=== PATIENT | male | born 1960 | race Caucasian/White ===

== ENCOUNTER → 2020-11-15 | Outpatient (CLI) | payer MEDICARE, MEDICAID ==
[~2020-11-15] MED LIST: IOHEXOL-300 100 ML BOTTLE ONE
== END | disposition home or self-care (01) ==
LOC: NM 07:33
PROVIDERS: ATTEND Urology
DX: C61 Malignant neoplasm of prostate (principal)
CPT/HCPCS: 71046; 72194; 78306; A9503; Q9967

== ENCOUNTER 2022-04-19 22:20 | Inpatient (IN) | payer MEDICARE, MEDICAID ==
[~2022-04-19] VITALS: Ht 188 cm; Wt 93.9 kg
[2022-04-19 22:20] VITALS: BP 140/60
[2022-04-20] MEDS ORDERED: ACETAMINOPHEN 325MG TABLET PO PRN ×2 (02:15)
[2022-04-20] MEDS ORDERED: ONDANSETRON HCL 4MG/2ML INJ IV PRN (02:15)
[2022-04-20] MEDS ORDERED: ZOLPIDEM TARTRATE 5MG TABLET PO PRN (02:15)
[2022-04-20] MEDS ORDERED: MAGNESIUM/ALUMINUM HYDROXIDE/SIMETHICONE 30ML UDC PO PRN (02:15)
[2022-04-20] MEDS ORDERED: DIPHENHYDRAMINE 50MG/ML VIAL IV PRN (02:15)
[2022-04-20 07:00] LABS: CHLORIDE 103 mEq/L (98-107)
[2022-04-20 07:03] LABS: HEMATOCRIT. 28.9 % (42.0-52.0); HEMOGLOBIN. 9.5 g/dL (14.0-18.0); MEAN CORPUSCULAR HEMOGLOBIN 30.2 pg (28.0-32.0); MEAN CORPUSCULAR VOLUME 91.8 fL (80.0-94.0); PLATELET 89 x1000/uL (130-400); RED BLOOD CELL COUNT 3.15 mill/uL (4.7-6.1); RED CELL DISTRIBUTION WIDTH 13.8 % (11.6-14.6)
[2022-04-20 08:00] VITALS: BP 120/86
[2022-04-20] MEDS: PANTOT AC/MIN OIL/PET HY-PHL OINT (AQUAPHOR) TOP SCH (09:00)
[2022-04-20] MEDS: PREDNISONE 10MG TABLET PO SCH (10:31)
[2022-04-20] MEDS: SODIUM CHLORIDE 1000MG TABLET PO SCH ×2 (10:31→17:00)
[2022-04-20] MEDS: FAMOTIDINE 20MG TABLET PO SCH (10:31)
[2022-04-20 20:00] VITALS: BP 140/86
[2022-04-21 08:00] VITALS: BP 116/83
[2022-04-21] MEDS: SODIUM CHLORIDE 1000MG TABLET PO SCH ×2 (09:02→16:51)
[2022-04-21] MEDS: FAMOTIDINE 20MG TABLET PO SCH (09:02)
[2022-04-21] MEDS: PREDNISONE 10MG TABLET PO SCH (09:02)
[2022-04-21] MEDS: PANTOT AC/MIN OIL/PET HY-PHL OINT (AQUAPHOR) TOP SCH (16:51)
[2022-04-21 20:00] VITALS: BP 149/96
[2022-04-21 20:52] LABS: PLATELET ESTIMATE DECREASED
[2022-04-21] MEDS ORDERED: ACETAMINOPHEN 325MG TABLET PO PRN (23:30)
[2022-04-21] MEDS ORDERED: DEXTROSE 50% WATER 50ML SYRINGE IV PRN (23:30)
[2022-04-22] VITALS (9 sets, daily range): BP systolic 101–136; BP diastolic 66–96
[2022-04-22] MEDS ORDERED: BLOOD SUGAR DIAGNOSTIC STRIP TEST SCH (06:30)
[2022-04-22 06:35] LABS: INR 1.1; PROTHROMBIN TIME 11.5 sec (9.6-11.0)
[2022-04-22] MEDS ORDERED: BICT1TAB3 (07:10)
[2022-04-22] MEDS ORDERED: CEFAZOLIN 1000MG PREMIX 50 ML IV NR (08:00)
[2022-04-22] MEDS ORDERED: INSULIN LISPRO 100 UNITS/ML SUBCUT SCH (09:00)
[2022-04-22] MEDS ORDERED: LIDOCAINE HCL 1% 10 MG/ML 10ML VIAL ONE (09:44)
[2022-04-22] MEDS: FAMOTIDINE 20MG TABLET PO SCH ×2 (10:00→21:21)
[2022-04-22] MEDS: PREDNISONE 10MG TABLET PO SCH (10:01)
[2022-04-22] MEDS: SODIUM CHLORIDE 1000MG TABLET PO SCH ×2 (10:01→17:45)
[2022-04-22] MEDS: PANTOT AC/MIN OIL/PET HY-PHL OINT (AQUAPHOR) TOP SCH (10:05)
[2022-04-23 08:00] VITALS: BP 98/72
[2022-04-23] MEDS: PANTOT AC/MIN OIL/PET HY-PHL OINT (AQUAPHOR) TOP SCH (09:00)
[2022-04-23] MEDS: PREDNISONE 10MG TABLET PO SCH (09:17)
[2022-04-23] MEDS: FAMOTIDINE 20MG TABLET PO SCH ×2 (09:17→21:00)
[2022-04-23] MEDS: SODIUM CHLORIDE 1000MG TABLET PO SCH ×2 (09:17→17:37)
[2022-04-23 20:00] VITALS: BP 146/95
[2022-04-24 08:00] VITALS: BP 91/55
[2022-04-24] MEDS: FAMOTIDINE 20MG TABLET PO SCH ×2 (09:17→20:39)
[2022-04-24] MEDS: PANTOT AC/MIN OIL/PET HY-PHL OINT (AQUAPHOR) TOP SCH (09:17)
[2022-04-24] MEDS: PREDNISONE 10MG TABLET PO SCH (09:17)
[2022-04-24] MEDS: SODIUM CHLORIDE 1000MG TABLET PO SCH ×2 (09:17→16:31)
[2022-04-24] MEDS ORDERED: VENL37.588 PO (15:28)
[2022-04-24] MEDS ORDERED: ASPI-1497 PO (15:28)
[2022-04-24] MEDS ORDERED: PRED5TAB PO (15:28)
[2022-04-24] MEDS ORDERED: BICT1TAB PO (15:28)
[2022-04-24] MEDS ORDERED: DOXA1TAB2 PO (15:28)
[2022-04-24] MEDS ORDERED: DAPS100T PO (15:28)
[2022-04-24] MEDS ORDERED: ATOR10TA69 PO (15:28)
[2022-04-24 20:00] VITALS: BP 131/54
[2022-04-25 08:00] VITALS: BP 176/98
[2022-04-25] MEDS: SODIUM CHLORIDE 1000MG TABLET PO SCH ×2 (08:37→16:47)
[2022-04-25] MEDS: PREDNISONE 10MG TABLET PO SCH (08:37)
[2022-04-25] MEDS: FAMOTIDINE 20MG TABLET PO SCH ×2 (08:37→21:15)
[2022-04-25] MEDS: PANTOT AC/MIN OIL/PET HY-PHL OINT (AQUAPHOR) TOP SCH (08:41)
[2022-04-25 09:00] VITALS: BP 119/81
[2022-04-25] MEDS: ASPIRIN 81MG TABLET PO SCH (14:25)
[2022-04-25] MEDS: VENLAFAXINE HCL 37.5MG TABLET PO SCH (14:26)
[2022-04-25] MEDS: DAPSONE 100MG TABLET PO SCH (14:26)
[2022-04-25] MEDS: DOXAZOSIN MESYLATE 2MG TABLET PO SCH (14:27)
[2022-04-25] MEDS ORDERED: SUCCINYLCHOLINE CHLORIDE 200MG/10ML IV ONE (14:46)
[2022-04-25 19:43] VITALS: BP 104/77
[2022-04-25] MEDS: ATORVASTATIN CALCIUM 10MG TABLET PO SCH (21:15)
[2022-04-25] MEDS: BENZTROPINE MESYLATE 1MG TABLET PO SCH (21:15)
[2022-04-26 08:00] VITALS: BP 108/71
[2022-04-26] MEDS: ASPIRIN 81MG TABLET PO SCH (09:40)
[2022-04-26] MEDS: DAPSONE 100MG TABLET PO SCH (09:41)
[2022-04-26] MEDS: DOXAZOSIN MESYLATE 2MG TABLET PO SCH (09:41)
[2022-04-26] MEDS: VENLAFAXINE HCL 37.5MG TABLET PO SCH (09:41)
[2022-04-26] MEDS: FAMOTIDINE 20MG TABLET PO SCH ×2 (09:41→20:32)
[2022-04-26] MEDS: PREDNISONE 5MG TABLET PO SCH (09:41)
[2022-04-26] MEDS: BENZTROPINE MESYLATE 1MG TABLET PO SCH ×2 (09:41→20:32)
[2022-04-26] MEDS: SODIUM CHLORIDE 1000MG TABLET PO SCH ×2 (09:41→16:56)
[2022-04-26] MEDS: PANTOT AC/MIN OIL/PET HY-PHL OINT (AQUAPHOR) TOP SCH (09:42)
[2022-04-26 20:00] VITALS: BP 113/81
[2022-04-26] MEDS: ATORVASTATIN CALCIUM 10MG TABLET PO SCH (20:32)
[2022-04-27 07:52] VITALS: BP 136/90
[2022-04-27] MEDS: PANTOT AC/MIN OIL/PET HY-PHL OINT (AQUAPHOR) TOP SCH (09:13)
[2022-04-27] MEDS: VENLAFAXINE HCL 37.5MG TABLET PO SCH (09:13)
[2022-04-27] MEDS: DOXAZOSIN MESYLATE 2MG TABLET PO SCH (09:13)
[2022-04-27] MEDS: PREDNISONE 5MG TABLET PO SCH (09:13)
[2022-04-27] MEDS: BENZTROPINE MESYLATE 1MG TABLET PO SCH ×2 (09:13→20:28)
[2022-04-27] MEDS: DAPSONE 100MG TABLET PO SCH (09:13)
[2022-04-27] MEDS: FAMOTIDINE 20MG TABLET PO SCH ×2 (09:13→20:28)
[2022-04-27] MEDS: ASPIRIN 81MG TABLET PO SCH (09:13)
[2022-04-27] MEDS: SODIUM CHLORIDE 1000MG TABLET PO SCH ×2 (09:14→17:36)
[2022-04-27 20:00] VITALS: BP 141/83
[2022-04-27] MEDS: ATORVASTATIN CALCIUM 10MG TABLET PO SCH (20:28)
[2022-04-28 06:10] LABS: CHLORIDE 103 mEq/L (98-107)
[2022-04-28 06:28] LABS: HEMATOCRIT. 27.9 % (42.0-52.0); HEMOGLOBIN. 9.3 g/dL (14.0-18.0); MEAN CORPUSCULAR HEMOGLOBIN 30.2 pg (28.0-32.0); MEAN CORPUSCULAR VOLUME 90.3 fL (80.0-94.0); MEAN PLATELET VOLUME 9.6 fl (7.4-10.4); PLATELET 184 x1000/uL (130-400); RED BLOOD CELL COUNT 3.09 mill/uL (4.7-6.1); RED CELL DISTRIBUTION WIDTH 14.6 % (11.6-14.6)
[2022-04-28 08:00] VITALS: BP 92/56
[2022-04-28] MEDS: DOXAZOSIN MESYLATE 2MG TABLET PO SCH (09:00)
[2022-04-28] MEDS: ASPIRIN 81MG TABLET PO SCH (09:40)
[2022-04-28] MEDS: VENLAFAXINE HCL 37.5MG TABLET PO SCH (09:41)
[2022-04-28] MEDS: PREDNISONE 5MG TABLET PO SCH (09:41)
[2022-04-28] MEDS: SODIUM CHLORIDE 1000MG TABLET PO SCH ×2 (09:41→16:30)
[2022-04-28] MEDS: DAPSONE 100MG TABLET PO SCH (09:41)
[2022-04-28] MEDS: BENZTROPINE MESYLATE 1MG TABLET PO SCH ×2 (09:41→20:25)
[2022-04-28] MEDS: FAMOTIDINE 20MG TABLET PO SCH ×2 (09:41→20:25)
[2022-04-28] MEDS: PANTOT AC/MIN OIL/PET HY-PHL OINT (AQUAPHOR) TOP SCH (09:46)
[2022-04-28] MEDS: MIDODRINE HCL 5MG TABLET PO SCH (16:32)
[2022-04-28 20:08] VITALS: BP 143/62
[2022-04-28] MEDS: ATORVASTATIN CALCIUM 10MG TABLET PO SCH (20:25)
[2022-04-28 21:51] LABS: PLATELET ESTIMATE NORMAL
[2022-04-29] MEDS: MIDODRINE HCL 5MG TABLET PO SCH ×2 (08:42→16:01)
[2022-04-29] MEDS: DAPSONE 100MG TABLET PO SCH (09:27)
[2022-04-29] MEDS: FAMOTIDINE 20MG TABLET PO SCH ×2 (09:27→21:49)
[2022-04-29] MEDS: BENZTROPINE MESYLATE 1MG TABLET PO SCH ×2 (09:27→21:49)
[2022-04-29] MEDS: PREDNISONE 5MG TABLET PO SCH (09:27)
[2022-04-29] MEDS: SODIUM CHLORIDE 1000MG TABLET PO SCH ×2 (09:27→16:01)
[2022-04-29] MEDS: VENLAFAXINE HCL 37.5MG TABLET PO SCH (09:27)
[2022-04-29] MEDS: ASPIRIN 81MG TABLET PO SCH (09:27)
[2022-04-29] MEDS: PANTOT AC/MIN OIL/PET HY-PHL OINT (AQUAPHOR) TOP SCH (09:27)
[2022-04-29] MEDS ORDERED: VENL37.586 PO (09:57)
[2022-04-29] MEDS ORDERED: DOXA1TAB2 PO (09:58)
[2022-04-29] MEDS ORDERED: BICT1TAB PO (09:59)
[2022-04-29] MEDS ORDERED: PRED5TAB48 PO (10:00)
[2022-04-29] MEDS ORDERED: DAPS100T PO (10:01)
[2022-04-29] MEDS ORDERED: ASPI-1497 PO (10:02)
[2022-04-29] MEDS ORDERED: CARI3CAP PO (10:12)
[2022-04-29] MEDS ORDERED: ATOR10TA PO (10:13)
[2022-04-29] MEDS ORDERED: ABIR250T2 PO (10:15)
[2022-04-29] MEDS ORDERED: BICA50TA7 PO (10:16)
[2022-04-29] MEDS ORDERED: TAMS-11 PO (10:18)
[2022-04-29] MEDS: SODIUM CHLORIDE 0.9% 1,000 ML IV SCH (16:00)
[2022-04-29 19:46] VITALS: BP 102/71
[2022-04-29] MEDS: ATORVASTATIN CALCIUM 10MG TABLET PO SCH (21:49)
[2022-04-30 08:00] VITALS: BP 100/55
[2022-04-30] MEDS: SODIUM CHLORIDE 1000MG TABLET PO SCH ×2 (09:11→18:03)
[2022-04-30] MEDS: VENLAFAXINE HCL 37.5MG SR CAPSULE 24HR PO SCH (09:11)
[2022-04-30] MEDS: PREDNISONE 5MG TABLET PO SCH (09:11)
[2022-04-30] MEDS: FAMOTIDINE 20MG TABLET PO SCH ×2 (09:11→21:35)
[2022-04-30] MEDS: ASPIRIN 81MG TABLET PO SCH (09:11)
[2022-04-30] MEDS: MIDODRINE HCL 5MG TABLET PO SCH ×3 (09:11→18:03)
[2022-04-30] MEDS: BENZTROPINE MESYLATE 1MG TABLET PO SCH ×2 (09:11→21:35)
[2022-04-30] MEDS: PANTOT AC/MIN OIL/PET HY-PHL OINT (AQUAPHOR) TOP SCH (09:12)
[2022-04-30] MEDS: SODIUM CHLORIDE 0.9% 1,000 ML IV SCH ×2 (09:15→17:40)
[2022-04-30 09:30] VITALS: BP_SYST 100; BP_SYST 107; BP_DIAS 75; BP_DIAS 77
[2022-04-30] MEDS: DAPSONE 100MG TABLET PO SCH (12:27)
[2022-04-30 20:00] VITALS: BP 131/90
[2022-04-30 21:11] LABS: BASOPHILS % 0.9 % (0.0-2.0); EOSINOPHILS % 2.2 % (0.0-5.0); HEMATOCRIT. 28.5 % (42.0-52.0); HEMOGLOBIN. 9.3 g/dL (14.0-18.0); LYMPHOCYTES % 21.6 % (20.0-50.0); MEAN CORPUSCULAR HEMOGLOBIN 29.8 pg (28.0-32.0); MEAN PLATELET VOLUME 9.4 fl (7.4-10.4); MONOCYTES % 13.5 % (2.0-8.0); NEUTROPHILS % 61.8 % (40.0-76.0); PLATELET 169 x1000/uL (130-400); RED BLOOD CELL COUNT 3.13 mill/uL (4.7-6.1); RED CELL DISTRIBUTION WIDTH 14.6 % (11.6-14.6)
[2022-04-30 21:19] LABS: CHLORIDE 105 mEq/L (98-107)
[2022-04-30] MEDS: ATORVASTATIN CALCIUM 10MG TABLET PO SCH (21:35)
[2022-05-01] MEDS: SODIUM CHLORIDE 0.9% 1,000 ML IV SCH ×2 (07:00→20:20)
[2022-05-01 08:00] VITALS: BP 116/86
[2022-05-01] MEDS: ASPIRIN 81MG TABLET PO SCH (08:44)
[2022-05-01] MEDS: FAMOTIDINE 20MG TABLET PO SCH ×2 (08:44→20:36)
[2022-05-01] MEDS: SODIUM CHLORIDE 1000MG TABLET PO SCH ×2 (08:44→17:32)
[2022-05-01] MEDS: PREDNISONE 5MG TABLET PO SCH (08:44)
[2022-05-01] MEDS: DAPSONE 100MG TABLET PO SCH (08:44)
[2022-05-01] MEDS: BENZTROPINE MESYLATE 1MG TABLET PO SCH ×2 (08:45→20:36)
[2022-05-01] MEDS: VENLAFAXINE HCL 37.5MG SR CAPSULE 24HR PO SCH (08:45)
[2022-05-01] MEDS: MIDODRINE HCL 5MG TABLET PO SCH ×3 (08:46→17:33)
[2022-05-01] MEDS: PANTOT AC/MIN OIL/PET HY-PHL OINT (AQUAPHOR) TOP SCH (09:00)
[2022-05-01 20:00] VITALS: BP 142/94
[2022-05-01] MEDS: ATORVASTATIN CALCIUM 10MG TABLET PO SCH (20:36)
[2022-05-02 08:00] VITALS: BP 94/64
[2022-05-02] MEDS: PANTOT AC/MIN OIL/PET HY-PHL OINT (AQUAPHOR) TOP SCH (09:00)
[2022-05-02] MEDS: DAPSONE 100MG TABLET PO SCH (09:12)
[2022-05-02] MEDS: ASPIRIN 81MG TABLET PO SCH (09:12)
[2022-05-02] MEDS: FAMOTIDINE 20MG TABLET PO SCH (09:12)
[2022-05-02] MEDS: MIDODRINE HCL 5MG TABLET PO SCH ×2 (09:13→12:38)
[2022-05-02] MEDS: SODIUM CHLORIDE 1000MG TABLET PO SCH (09:13)
[2022-05-02] MEDS: PREDNISONE 5MG TABLET PO SCH (09:13)
[2022-05-02] MEDS: BENZTROPINE MESYLATE 1MG TABLET PO SCH (09:13)
[2022-05-02] MEDS: VENLAFAXINE HCL 37.5MG SR CAPSULE 24HR PO SCH (09:13)
[2022-05-02 13:47] VITALS: BP 113/81
== END 2022-05-02 14:22 | DRG 723 ==
PROVIDERS: ADMIT Psychiatry & Neurology Neurology; ATTEND Internal Medicine
PROC: 06H03DZ Insertion of Intraluminal Device into Inferior Vena Cava, Percutaneous Approach (ICD-10-PCS; principal; 2022-04-22)
DX: C61 Malignant neoplasm of prostate (principal); E87.1 Hypo-osmolality and hyponatremia; N17.9 Acute kidney failure, unspecified; I82.411 Acute embolism and thrombosis of right femoral vein; I82.431 Acute embolism and thrombosis of right popliteal vein; R53.81 Other malaise; D69.6 Thrombocytopenia, unspecified; F31.9 Bipolar disorder, unspecified; E83.39 Other disorders of phosphorus metabolism; G24.01 Drug induced subacute dyskinesia; N18.2 Chronic kidney disease, stage 2 (mild); Z20.822 Contact with and (suspected) exposure to COVID-19; M75.101 Unspecified rotator cuff tear or rupture of right shoulder, not specified as traumatic
CPT/HCPCS: 36415; 37191; 80048; 80053; 85025; 87426; 93970; 97110; 97116; 97162; 97166; 97530; 97535; C1769; C1880; J0330; J0690; J1644; J3490; J7030; J7512